=== PATIENT | male | born 1965 | race Two or more races ===

== ENCOUNTER 2021-10-24 15:58 | Emergency (ER) | payer MEDICAID ==
[~2021-10-24] VITALS: Ht 162.6 cm; Wt 76.2 kg
[2021-10-24] MEDS ORDERED: PRED20TA PO (16:27)
[2021-10-24] MEDS ORDERED: SERT25TA PO (16:27)
--- NOTE | 2021-10-24 19:24 | NUR ---
PT EVALUATED BY DR HARVEY. DISCHARGE INSTRUCTIONS GIVEN PER MD ORDER. TEST RESULTS REVIEWED W/ PATIENT BY DR HARVEY.
[2021-10-24 19:26] VITALS: BP 144/88
== END 2021-10-24 19:26 | disposition home or self-care (01) ==
LOC: ER 16:01
DX: U07.1 COVID-19 (principal); R06.02 Shortness of breath; F41.9 Anxiety disorder, unspecified
CPT/HCPCS: A4663